=== PATIENT | female | born 1990 | race Caucasian/White ===

== ENCOUNTER 2017-07-13 19:59 | Emergency (ER) | payer BC ==
[~2017-07-13] VITALS: Ht 152.4 cm; Wt 57.9 kg
[~2017-07-13 19:59] MED LIST: BCPILLS PO; CETI10TA84 PO; DIPH1TAB87 PO; GABA-112 PO; LACTPOW PO; LANS15CA6 PO; MONT1TAB3 PO
[2017-07-13 20:02] VITALS: TEMP 37.2; Ht 152.4 cm; Wt 57.9 kg
[2017-07-13] MEDS ORDERED: SODIUM CHLORIDE 0.9% 1000ML 1,000 ML IV STA (20:09)
[2017-07-13] MEDS ORDERED: KETOROLAC TROMETHAMINE 30 MG/ML VIAL IV STA (20:09)
[2017-07-13] MEDS ORDERED: ONDANSETRON INJ 2 MG/ML 2 ML VIAL IV STA (20:09)
[2017-07-13] MEDS ORDERED: OPTIRAY 320 IV PRN (20:15)
[2017-07-13 20:39] LABS: BASO % 0.1 %; BASO ABS # 0.01 K/uL (0-0.2); EOS % 0.7 %; EOS ABS # 0.05 K/uL (0-0.5); HEMOGLOBIN 12.6 g/dL (12.0-16.0); IG# 0.02 K/uL (0.00-0.02); LYMPH % 37.3 %; LYMPH ABS # 2.75 K/uL (1.2-3.4); MEAN CELL VOLUME 88.7 fL (80-100); MEAN CORPUSCULAR HEMOGLOBIN 30.2 pg (25-34); MEAN CORPUSCULAR HGB CONC 34.1 g/dl (32-36); MEAN PLATELET VOLUME 11.2 fL (7.4-10.4); MONO % 4.5 %; MONO ABS # 0.33 K/uL (0.11-0.59); NEUT % 57.1 %; NEUT ABS # 4.22 K/uL (1.4-6.5); PLATELET COUNT 243 K/uL (130-400); RED CELL DISTRIBUTION WIDTH CV 12.9 % (11.5-14.5); RED CELL DISTRIBUTION WIDTH SD 41.3 fL (36.4-46.3); WHITE BLOOD COUNT 7.38 K/uL (4.8-10.8)
[2017-07-13 21:01] LABS: ALBUMIN 3.5 gm/dl (3.4-5.0); ALT/SGPT 21 U/L (12-78); AST/SGOT 13 U/L (15-37); BLOOD UREA NITROGEN 7 mg/dl (7-18); CALCIUM 8.7 mg/dl (8.5-10.1); CARBON DIOXIDE 27 mmol/L (21-32); CREATININE 0.79 mg/dl (0.60-1.20); GLUCOSE 91 mg/dl (70-99); LIPASE 112 U/L (73-393); POTASSIUM 3.7 mmol/L (3.5-5.1); SODIUM 140 mmol/L (136-145)
[2017-07-13 21:04] LABS: ALKALINE PHOSPHATASE 57 U/L (45-117)
--- NOTE | 2017-07-13 21:48 | DIAGNOSTIC IMAGING REPORT ---
ABD/PELVIS IV CONTRAST ONLY CT DOSE: 415.91 mGycm HISTORY: Right flank pain rlq abd pain TECHNIQUE: Multiaxial CT images of the abdomen and pelvis were performed following the use of intravenous contrast. A dose lowering technique was utilized adhering to the principles of ALARA. COMPARISON STUDY: 05/25/2014 FINDINGS: The lung bases are clear. The liver, spleen, gallbladder, pancreas, kidneys, and adrenal glands are within normal limits. No bowel wall thickening or obstruction. The pelvic organs are unremarkable. No suspicious lytic or blastic osseous lesions. The appendix is normal. Several fluid-filled loops of small bowel in the mid abdomen extending to the pelvis which may suggest a mild enteritis. Uterus is anteflexed. No free fluid within the cul-de-sac. IMPRESSION: No significant abnormality identified within the abdomen or pelvis. Possible mild enteritis. Normal appendix. The above report was generated using voice recognition software. It may contain grammatical, syntax or spelling errors. Electronically signed by: Bryan Mares M.D. 07/13/2017 9:46 PM Dictated Date/Time: 07/13/2017 9:45 PM
[2017-07-13 22:30] VITALS: BP 101/54; PULSE 71; O2SAT 98
--- NOTE | 2017-07-14 01:12 | EMERGENCY ROOM VISIT NOTE ---
History Report prepared by Barrera: Claude Carranza Under the Supervision of: Dr. Caleb Lynch D.O. First contact with patient: 20:04 Chief Complaint: ABDOMINAL PAIN Stated Complaint: LOWER R QUADRANT PAIN CHILLS History of Present Illness The patient is a 27 year old female who presents to the Emergency Room with complaints of constant, sharp, RLQ abdominal pain beginning earlier today. She currently rates her discomfort a 5/10 in severity. The patient states she then developed nausea and chills throughout the day. She reports her symptoms will radiate around the right side to her right flank and down into her right leg. The patient notes she has a history of this before when she realized she was gluten intolerant. She states she is not able to eat or drink anything because it worsens her symptoms. The patient reports her last bowel movement was today, and it was normal. She notes her LNMP was two weeks ago. The patient states she has a history of a cholecystectomy. She reports she was evaluated at a walk-in clinic prior to arrival where her UA was negative. The patient denies pain with urination, burning with urination, a history of ovarian cysts, vaginal bleeding , and vaginal discharge. Source of History: patient Onset: earlier today Position: abdomen (RLQ) Symptom Intensity: 5/10 Quality: sharp Timing: constant Modifying Factors (Worsening): eating, drinking Associated Symptoms: + chills, + nausea Note: Associated symptoms: right flank pain, right leg pain Denies: vaginal bleeding or discharge, pain or burning with urination Review of Systems See HPI for pertinent positives & negatives. A total of 10 systems reviewed and were otherwise negative. Past Medical & Surgical Medical Problems: (1) Allergic rhinitis (2) Cholecystectomy planned (3) GERD (gastroesophageal reflux disease) Surgical Problems: (1) History of resection of rib (2) Hx laparoscopic cholecystectomy (3) [place] teeth extracted Family History Cancer Diabetes mellitus Gallbladder disease Kidney disease Kidney stones Social History Smoking Status: Never Smoker Alcohol Use: occasionally Marital Status: single Housing Status: lives alone Occupation Status: employed Current/Historical Medications Scheduled Control Pills ( Control Pills), 1 TAB PO DAILY Cetirizine (Zyrtec), 10 MG PO DAILY Gabapentin (Neurontin), 100 MG PO am Gabapentin (Neurontin), 200 MG PO PM Lactose (Lactose), 1 TAB PO DAILY Lansoprazole (Prevacid), 15 MG PO DAILY Montelukast Sodium (Singulair), 10 MG PO DIRECTED Scheduled PRN Diphenhydramine Hcl (Benadryl Allergy), 1 TAB PO DIRECTED PRN for ALLERGY Allergies Coded Allergies: No Known Allergies (Unverified , 05/25/14) Physical Exam Vital Signs Date Time Temp Pulse Resp B/P (MAP) Pulse Ox O2 Delivery O2 Flow Rate FiO2 07/13/17 22:30 71 18 101/54 98 07/13/17 21:38 79 18 94/61 99 Room Air 07/13/17 20:02 37.2 66 20 123/84 98 Room Air Physical Exam GENERAL: Sitting up in bed, alert, well appearing, well nourished, no distress, non-toxic EYE EXAM: normal conjunctiva. OROPHARYNX: no exudate, no erythema, lips, buccal mucosa, and tongue normal and mucous membranes are moist NECK: supple, no nuchal rigidity, no adenopathy, non-tender LUNGS: Clear to auscultation. Normal chest wall mechanics HEART: no murmurs, S1 normal and S2 normal ABDOMEN: abdomen soft, faint tenderness in the right mid-abdomen, normo-active bowel sounds, no masses, no rebound or guarding. BACK: Back is symmetrical on inspection and there is no deformity, no midline tenderness, no CVA tenderness. SKIN: no rashes and no bruising UPPER EXTREMITIES: upper extremities are grossly normal. LOWER EXTREMITIES: No pitting edema. NEURO EXAM: Normal sensorium, cranial nerves II-XII grossly intact, normal speech, no gross weakness of arms, no gross weakness of legs. Medical Decision & Procedures ER Provider Diagnostic Interpretation: CT:Per my review, radiologist interpretation. ABD/PELVIS IV CONTRAST ONLY CT DOSE: 415.91 mGycm HISTORY: Right flank pain rlq abd pain TECHNIQUE: Multiaxial CT images of the abdomen and pelvis were performed following the use of intravenous contrast. A dose lowering technique was utilized adhering to the principles of ALARA. COMPARISON STUDY: 05/25/2014 FINDINGS: The lung bases are clear. The liver, spleen, gallbladder, pancreas, kidneys, and adrenal glands are within normal limits. No bowel wall thickening or obstruction. The pelvic organs are unremarkable. No suspicious lytic or blastic osseous lesions. The appendix is normal. Several fluid-filled loops of small bowel in the mid abdomen extending to the pelvis which may suggest a mild enteritis. Uterus is anteflexed. No free fluid within the cul-de-sac. IMPRESSION: No significant abnormality identified within the abdomen or pelvis. Possible mild enteritis. Normal appendix. The above report was generated using voice recognition software. It may contain grammatical, syntax or spelling errors. Electronically signed by: Bryan Mares M.D. 07/13/2017 9:46 PM Dictated Date/Time: 07/13/2017 9:45 PM Laboratory Results 07/13/17 20:25 Red Blood Count 4.17, Mean Corpuscular Volume 88.7, Mean Corpuscular Hemoglobin 30.2, Mean Corpuscular Hemoglobin Concent 34.1, Mean Platelet Volume 11.2, Neutrophils (%) (Auto) 57.1, Lymphocytes (%) (Auto) 37.3, Monocytes (%) (Auto) 4.5, Eosinophils (%) (Auto) 0.7, Basophils (%) (Auto) 0.1, Neutrophils # (Auto) 4.22, Lymphocytes # (Auto) 2.75, Monocytes # (Auto) 0.33, Eosinophils # (Auto) 0.05, Basophils # (Auto) 0.01 07/13/17 20:25 Test 07/13/17 20:25 White Blood Count 7.38 K/uL (4.8-10.8) Red Blood Count 4.17 M/uL (4.2-5.4) Hemoglobin 12.6 g/dL (12.0-16.0) Hematocrit 37.0 % (37-47) Mean Corpuscular Volume 88.7 fL (80-100) Mean Corpuscular Hemoglobin 30.2 pg (25-34) Mean Corpuscular Hemoglobin Concent 34.1 g/dl (32-36) Platelet Count 243 K/uL (130-400) Mean Platelet Volume 11.2 fL (7.4-10.4) Neutrophils (%) (Auto) 57.1 % Lymphocytes (%) (Auto) 37.3 % Monocytes (%) (Auto) 4.5 % Eosinophils (%) (Auto) 0.7 % Basophils (%) (Auto) 0.1 % Neutrophils # (Auto) 4.22 K/uL (1.4-6.5) Lymphocytes # (Auto) 2.75 K/uL (1.2-3.4) Monocytes # (Auto) 0.33 K/uL (0.11-0.59) Eosinophils # (Auto) 0.05 K/uL (0-0.5) Basophils # (Auto) 0.01 K/uL (0-0.2) RDW Standard Deviation 41.3 fL (36.4-46.3) RDW Coefficient of Variation 12.9 % (11.5-14.5) Immature Granulocyte % (Auto) 0.3 % Immature Granulocyte # (Auto) 0.02 K/uL (0.00-0.02) Anion Gap 6.0 mmol/L (3-11) Est Creatinine Clear Calc Drug Dose 85.2 ml/min Estimated GFR () 118.9 Estimated GFR (Non- 102.6 BUN/Creatinine Ratio 8.2 (10-20) Calcium Level 8.7 mg/dl (8.5-10.1) Total Bilirubin 0.3 mg/dl (0.2-1) Direct Bilirubin < 0.1 mg/dl (0-0.2) Aspartate Amino Transf (AST/SGOT) 13 U/L (15-37) Alanine Aminotransferase (ALT/SGPT) 21 U/L (12-78) Alkaline Phosphatase 57 U/L (45-117) Total Protein 7.0 gm/dl (6.4-8.2) Albumin 3.5 gm/dl (3.4-5.0) Lipase 112 U/L (73-393) Human Chorionic Gonadotropin, Qual NEG (NEG) Laboratory results per my review. Medications Administered Medications (Trade) Dose Ordered Sig/Lukasz Route Start Time Stop Time Status Last Admin Dose Admin Sodium Chloride 1,000 ml @ 999 mls/hr Q1H1M STAT IV 07/13/17 20:09 07/13/17 21:09 DC 07/13/17 20:27 999 MLS/HR Ondansetron HCl (Zofran Inj) 4 mg NOW STAT IV 07/13/17 20:09 07/13/17 20:11 DC 07/13/17 20:27 4 MG Ketorolac Tromethamine (Toradol Inj) 30 mg NOW STAT IV 07/13/17 20:09 07/13/17 20:11 DC 07/13/17 20:27 30 MG ED Course ED COURSE: Vital signs were reviewed and showed normal vitals The patients medical record was reviewed The above diagnostic studies were performed and reviewed. ED treatments and interventions as stated above. 2005: The patient was evaluated in room B03B. A complete history and physical examination was performed. 2008: Ordered Toradol 30mg IV, Zofran 4mg IV, Sodium Chloride 1000 ml @ 999 mls/ hr IV 2205: I reevaluated the patient. She is feeling much better and does not want more pain medication. 2221: Upon reevaluation, the patient is resting and feeling better.I discussed my findings with the patient and she understands and agrees with the treatment plan. Based on the patients age, coexisting illnesses, exam and lab findings the decision to treat as an outpatient was made. The patient remained stable while under my care. The patient appeared well at the time of discharge. Medical Decision Differential diagnoses includes but is not limited to gastritis, peptic ulcer disease, GERD, gallbladder disease, pancreatitis, small bowel obstruction, acute coronary syndrome, pericarditis, ischemic bowel, irritable bowel disease, irritable bowel syndrome, appendicitis, diverticulitis, malignancy, hernia, urinary tract infection, torsion, /ectopic , perforation, trauma, infectious. Patient is a 27-year-old female who presents the ER for sharp pains in the right lower quadrant referred in by PCP. Last menstrual period was 2 weeks ago. No vaginal bleeding vaginal discharge. No fevers. CBC along with BMP, LFTs, bilirubin and lipase was negative. HCG was negative. Patient just had a urine performed across the street was reviewed and was negative. No signs of UTI. CT shows normal appendix. No signs of ovarian torsion. Based on her symptoms and timeframe I do favor this is likely a small ovarian cyst. Patient was updated at bedside. Discharged follow-up with PCP as an outpatient. Discussed with Pt concerning signs and symptoms to watch out for. Pt was instructed to follow up with their PCP and discussed with the patient their option to return to the ED at anytime for persistent or worsening symptoms. The appropriate anticipatory guidance and out-patient management, including indications for return to the emergency department, were explained at length to the patient and understood. Medication Reconcilliation Current Medication List: was personally reviewed by me Blood Pressure Screening Patient's blood pressure: Normal blood pressure Blood pressure disposition: Did not require urgent referral Impression Primary Impression: Abdominal pain Scribe Attestation The scribe's documentation has been prepared under my direction and personally reviewed by me in its entirety. I confirm that the note above accurately reflects all work, treatment, procedures, and medical decision making performed by me. Departure Information Dispostion Home / Self-Care Referrals Falguni Mai DO (PCP) Forms HOME CARE DOCUMENTATION FORM, IMPORTANT VISIT INFORMATION Patient Instructions Abdominal Pain - [facility] Additional Instructions Please follow up with your primary care doctor with in the next 24 hours. Any worsening of your symptoms, please return to the ED immediately. This includes any fevers greater than 100.4, worsening pain, chest pain, shortness breath, persistent nausea, vomiting, unable to eat or drink, or any other concerning signs or symptoms from your standpoint. Please take Tylenol or Motrin as needed for pain. Problem Qualifiers Primary Impression: Abdominal pain Abdominal location: unspecified location Qualified Codes: R10.9 - Unspecified abdominal pain
== END 2017-07-13 22:32 | disposition home or self-care (01) ==
LOC: C.EDB 20:01
DX: R10.31 Right lower quadrant pain (principal); K21.9 Gastro-esophageal reflux disease without esophagitis; Z79.3 Long term (current) use of hormonal contraceptives; Z79.899 Other long term (current) drug therapy

== ENCOUNTER → 2017-11-02 | Outpatient (CLI) | payer BC | END | disposition home or self-care (01) | LOC: C.RDSM 10:19 | PROVIDERS: ATTEND Family Medicine | DX: M79.671 Pain in right foot (principal); Z91.018 Allergy to other foods; Z91.011 Allergy to milk products ==

== ENCOUNTER 2022-06-17 07:51 | Inpatient (IN) ==
[2022-06-17] MEDS ORDERED: OXYTOCIN 30 UNITS/500 ML BAG IV PRN ×2 (07:53→08:18)
[2022-06-17] MEDS ORDERED: LIDOCAINE 1% LOCAL 20 ML VIAL INFIL PRN (07:53)
--- NOTE | 2022-06-17 08:31 | History & Physical Report ---
Date of Service June 17, 2022 Assessment & Plan (1) with 41 completed weeks gestation: Plan: induction of labor Admission and Anticipated Discharge Date Admission Date: June 17, 2022 History of Present Illness Primary Care Provider: Kandis James MD [facility] Calculator C Estimated Delivery Date Method Current WG Current Estimate 06/09/22 Ultrasound #1 41w 0d Other Estimates 06/09/22 Conception 41w 0d LMP: 07/10/21 : 2 Full term: 0 Premature: 0 Total Number of Induced Abortions: 0 Total Number of Spontaneous Abortions: 1 Ectopics: 0 Multiple births: 0 Number of Living Children: 0 and Delivery Plans + Covid 03/14/22, sx's began 03/11/22 Covid Vaccine x 3 (Moderna) Spouse with ventricular depression(his dx was age 8) -offered echo (02/11/22 @ [facility] [place]) WNL Hx Complex regional pain syndrome - Requested Anesthesia consul (05/29/22 @ 130pm) Allergies Allergy/AdvReac Type Severity Reaction Status Date / Time gluten AdvReac Severe Vomiting Verified 06/16/22 20:52 lactose AdvReac Severe Vomiting Verified 06/16/22 20:51 Home Medications Medication Instructions Recorded Confirmed Type cetirizine 10 mg capsule mg PO .Take 1 tab PO day 09/21/20 06/16/22 History diphenhydramine HCl 25 mg capsule 25 mg PO PRN allergic reaction 09/21/20 06/16/22 History fluticasone propionate 50 2 spray intranasal DAILY #15.8 mL 09/21/20 06/16/22 Rx mcg/actuation nasal spray,suspension (Flonase Allergy Relief) prenat.vits,janessa,[id number] 1 tab PO DAILY 08/28/21 06/16/22 History albuterol sulfate [Proventil HFA] inhalation 10/22/21 06/16/22 History breast pump #1 ea 03/24/22 06/16/22 Rx omeprazole PO 05/29/22 06/16/22 History Patient History Medical History (Updated 06/16/22 @ 20:07 by Nara Mcclellan MD, FACOG) Acne Complex regional pain syndrome - Bilateral legs - Left LE - mostly to left ankle (can get pain up into left hip at times) - Right LE mostly to right foot - Off meds since Feb 2019 (usually aggravated in cold weather) (on Gabapentin and Robaxin in the past) - Followed with ortho in the past - No recent issues/stable Esophageal reflux - Prior to - occ aggravated with - takes Prevacid daily - Will start Omeprazole after delivery Exercise-induced asthma Rare inhaler use Gastroparesis Lactase deficiency Mild scoliosis Neurogenic thoracic outlet syndrome S/p rib removal- symptoms improved Occ muscle spams if prolonged sitting Seasonal allergies Surgical History History of resection of rib S/P cholecystectomy S/P wisdom tooth extraction Family History Grandmother (Paternal) Uterine cancer Father Esophageal cancer Thyroid cancer Mother Endometriosis Arrhythmia Denies family history of Ovarian cancer Breast cancer Colorectal cancer Social History (Updated 10/22/21 @ 17:15 by Apoorva Cruz) Smoking Status: Never smoker Second Hand Exposure: No; Hx Alcohol Use: No (Social drinker prior to ) Hx Substance Use: No marital status: marital status details: Skip Cano [phone]) [phone] Current Living Situation: Spouse Current Living Situation Comment: lives with spouse, dog current occupational status: employed 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
[2022-06-17 08:53] LABS: Hematocrit (blood only) 35.4 % (37.0-47.0); Hemoglobin 12.1 g/dl (12.0-16.0); Mean Corpuscular Hemoglobin 30.6 pg (25.0-34.0); Mean Corpuscular Hgb Conc 34.2 g/dL (32.0-36.0); Mean Corpuscular Volume 89.6 fL (80.0-100.0); Mean Platelet Volume 12.5 fL (9.4-12.4); Platelet Count 221 K/uL (130-400); RDW Coefficient of Variation 13.3 % (11.5-14.5); RDW Standard Deviation 43.5 fL (36.4-46.3); Red Blood Count 3.95 M/uL (4.20-5.40); White Blood Count 10.62 K/ul (4.8-10.8)
[2022-06-17] MEDS: LACTATED RINGER'S 1,000 ML IV PRN ×2 (09:33→17:36)
[2022-06-18] MEDS: LACTATED RINGER'S 1,000 ML IV PRN ×5 (01:35→20:52)
[2022-06-18] MEDS: CALCIUM CARBONATE 500 MG CHEWABLE TAB PO PRN ×2 (04:57→18:25)
--- NOTE | 2022-06-18 07:13 | Labor Progress Brief Note ---
Date of Service June 18, 2022 Update progress membranes have been ruptured artificially initially the head was somewhat high to do this and was floating away so artificial rupture of membranes was not performed the heart rate is category 1 patient still is not requesting epidural and she is comfortable continue induction of labor she is not truly an active labor yet despite significant amounts of Pitocin hopefully with rupture of membranes this will help the baby's head was secured at rupture of membranes at 4:30 in the morning and did not float away and tracing has been reasonable since. Assessment & Plan Admission and Anticipated Discharge Date Admission Date: June 17, 2022 Results & Data Vital Signs (Past 12 Hours) Vital Signs Temp Pulse Resp BP 06/18/22 07:06 54 L 109/74 06/18/22 04:40 98.6 F 06/18/22 04:10 18 06/18/22 04:10 98.8 F 18 06/18/22 04:11 64 99/59 L 06/17/22 23:00 18 06/17/22 23:00 98.6 F 18 06/17/22 22:59 75 109/60 06/17/22 20:00 18 06/17/22 20:00 98.2 F 18 Coding Level of Care Code None Diagnoses
[2022-06-18] MEDS ORDERED: ePHEDrine sulfate 50 MG/ML AMP ONE (08:14)
[2022-06-18] MEDS ORDERED: SODIUM CHLORIDE 0.9% PF INJ 10 ML VIAL ONE (08:15)
[2022-06-18] MEDS ORDERED: fentaNYL citrate PF 100 MCG/2 ML VIAL ONE (08:15)
[2022-06-18] MEDS ORDERED: LIDOCAINE 2%/EPINEPHRINE 1:200,000 20 ML PF ONE (08:15)
[2022-06-18] MEDS ORDERED: BUPIVACAINE 0.25% PF 30 ML VIAL ONE (08:15)
[2022-06-18] MEDS ORDERED: fentaNYL 2MCG/ML ROPIVACAINE 1.25MG/ML 100 ML BAG EPI ONE (08:16)
--- NOTE | 2022-06-18 08:41 | Anesthesiology Consultation ---
Date of Service June 18, 2022 Assessment & Plan (1) Encounter for pre-operative examination: Chart Review Chart Review: Acceptable Risk for Labor Epidural History Height/Weight Height: 5 ft Weight: 78.018 kg Allergies Allergy/AdvReac Type Severity Reaction Status Date / Time gluten AdvReac Severe Vomiting Verified 06/16/22 20:52 lactose AdvReac Severe Vomiting Verified 06/16/22 20:51 Medications Home Medications Medication Instructions Recorded Confirmed Last Taken prenat.vits,janessa,[id number] 1 tab PO DAILY 08/28/21 06/17/22 06/16/22 20:00 albuterol sulfate [Proventil HFA] 2 puff inhalation PRN Shortness Of 10/22/21 06/16/22 Unknown Breath breast pump #1 ea 03/24/22 06/16/22 Unknown omeprazole 1 tab PO DAILY 05/29/22 06/16/22 Unknown cetirizine 10 mg capsule 10 mg PO DAILY 06/17/22 06/17/22 06/17/22 06:00 fluticasone propionate 50 2 spray intranasal DAILY 06/17/22 06/17/22 06/16/22 20:00 mcg/actuation nasal spray,suspension Active Medications Generic Name Dose Route Start Last Admin Trade Name Freq PRN Reason Stop Dose Admin Calcium Carbonate 1,500 mg 06/18/22 04:14 06/18/22 04:57 Calcium Carbonate 500 Mg Chewable Tab PO 07/18/22 04:13 1,500 mg Q6 PRN Administration Indigestion Lactated Ringer's 1,000 mls @ 125 mls/hr 06/17/22 07:53 06/18/22 08:32 Lr IV 06/19/22 07:52 999 mls/hr .Q8H PRN Administration L&D Protocol Protocol Oxytocin 30 units in 500 mls @ 10 mls/hr 06/17/22 08:18 06/18/22 07:35 Pitocin IV 06/19/22 08:17 0.6 units/hr .Q24H PRN 10 mls/hr Labor Induction/Augmentation Titration Protocol 0.6 UNITS/HR Past Medical History Medical History Acne Complex regional pain syndrome - Bilateral legs - Left LE - mostly to left ankle (can get pain up into left hip at times) - Right LE mostly to right foot - Off meds since Feb 2019 (usually aggravated in cold weather) (on Gabapentin and Robaxin in the past) - Followed with ortho in the past - No recent issues/stable Esophageal reflux - Prior to - occ aggravated with - takes Prevacid daily - Will start Omeprazole after delivery Exercise-induced asthma Rare inhaler use Gastroparesis Lactase deficiency Mild scoliosis Neurogenic thoracic outlet syndrome S/p rib removal- symptoms improved Occ muscle spams if prolonged sitting Seasonal allergies Past Family History Family History Grandmother (Paternal) Uterine cancer Father Esophageal cancer Thyroid cancer Mother Endometriosis Arrhythmia Denies family history of Ovarian cancer Breast cancer Colorectal cancer Past Surgical History Surgical History History of resection of rib S/P cholecystectomy S/P wisdom tooth extraction Social History Smoking Status: Never smoker Hx Alcohol Use: No (Social drinker prior to ) Hx Substance Use: No substance use type: does not use Physical Exam Vital Signs Last Vital Signs Temp 36.8 C 06/18/22 07:06 Pulse 54 L 06/18/22 07:06 Resp 20 06/18/22 07:06 BP 109/74 06/18/22 07:06 Testing Laboratory Results 06/17/22 08:20
[2022-06-18] MEDS ORDERED: ePHEDrine sulfate 50 MG/ML AMP IV PRN (09:09)
[2022-06-18] MEDS ORDERED: NALOXONE HCL 0.4 MG/1 ML VIAL/CARP IV PRN (09:09)
[2022-06-18] MEDS ORDERED: fentaNYL 2MCG/ML ROPIVACAINE 1.25MG/ML 100 ML BAG EPI PRN (09:09)
[2022-06-18] MEDS ORDERED: ONDANSETRON INJ 2 MG/ML 2 ML VIAL IV PRN (09:09)
[2022-06-18] MEDS ORDERED: NALOXONE HCL 1 MG in SODIUM CHLORIDE 0.9% 1000ML 1,000 ML IV PRN (09:09)
[2022-06-18] MEDS ORDERED: Nursing to Pharmacy Communication SCH (17:30)
[2022-06-19] MEDS ORDERED: HYDROCORTISONE ACETATE 25 MG SUPP PR PRN (00:11)
[2022-06-19] MEDS ORDERED: oxyCODONE/ACETAMINOPHEN 5mg/325mg TAB PO PRN (00:11)
[2022-06-19] MEDS ORDERED: DIPHTHERIA/TETANUS/PERTUSSIS 0.5mL SYR/VIAL (Age 7+yrs) IM ONE (00:11)
[2022-06-19] MEDS ORDERED: ACETAMINOPHEN 325 MG TAB PO PRN (00:11)
[2022-06-19] MEDS ORDERED: bisacodyL 10 MG SUPP PR PRN (00:11)
[2022-06-19] MEDS ORDERED: BENZOCAINE 20% AER SPR 82.5 GM CAN EXT PRN (00:11)
[2022-06-19] MEDS ORDERED: OXYTOCIN 30 UNITS/500 ML BAG IV PRN (00:11)
--- NOTE | 2022-06-19 00:33 | Delivery Summary ---
Vaginal Delivery Summary Date of Service June 19, 2022 Vaginal Delivery Summary and 1st Degree LAC Patient is a 32-year-old 1 P0 female who had presented for induction of labor because of postterm . She received a cervical balloon followed by Pitocin augmentation of her labor. Membranes were ruptured for clear fluid. She progressed to full dilation with effective epidural analgesia. She pushed effectively over intact perineum for delivery of a viable female infant. There was a tight nuchal cord present at delivery and this was cut and clamped prior to delivering the rest of the infant. The had poor tone and respiratory effort upon delivery and was taken to the baby bed for further evaluation. After stimulation, she was crying and moving all 4 limbs. Placenta was then expressed intact with a three-vessel cord. bleeding was controlled with dilute Pitocin and fundal massage. First-degree perineal laceration was repaired with 3-0 chromic in usual fashion. Blood loss was 200 cc. Mother and were doing well after delivery. [facility] Vaginal Delivery Charge Delivery Type Details: and 1st Degree LAC
--- NOTE | 2022-06-19 01:32 | Anesthesia Procedure Note ---
Date of Service June 19, 2022 Anesthesia Post Epidural Note Vital Signs Vital Signs: Temp Pulse Resp BP Pulse Ox 37.3 C 70 18 104/61 76 L 06/18/22 20:35 06/19/22 01:25 06/19/22 01:10 06/19/22 01:25 06/19/22 00:01 Pain Intensity Bilateral Lower Abdomen: Pain Intensity: 0 Groin: Pain Intensity: 4 Notes Mental Status: alert / awake / arousable Nausea / Vomiting: adequately controlled Pain: adequately controlled Airway Patency, RR, SpO2: stable & adequate BP & HR: stable & adequate Hydration State: stable & adequate Neuraxial Anesthesia: was administered and sensory block is resolving Anesthetic Complications: no major complications apparent and Pt Satisfied with anesthetic care Epidural: Removed without complications and With tip intact
[2022-06-19] MEDS: IBUPROFEN 600 MG TAB PO PRN ×4 (02:58→20:02)
--- NOTE | 2022-06-19 06:53 | Obstetrical Progress Note ---
Date of Service June 19, 2022 Assessment & Plan (1) Encounter for care after hospital delivery: Plan - Overall, feeling well and eating well today - Infant feeding going well without concern - Urinating and passing gas appropriately - Ambulating well in room - Pain controlled w/ Ibuprofen - Hgb 12.1 on 06/17 - Vitals stable and wnl - Routine PP care progressing well - Anticipate discharge @ 24-48 hours PP - Recommending f/u outpatient in 6 weeks Admission and Anticipated Discharge Date Admission Date: June 17, 2022 Supervising Physician Co-Signing Physician Notes Resident Physician Supervision Note: I interviewed and examined the patient. Discussed with Dr. Domínguez and agree with findings and plan as documented in the note. Any exceptions or clarifications are listed here: [None] Documented By: Lindsay Corey MD, FACOG Subjective Patient is a 32F who is PPD #1 following delivery at 41 1. She reports feeling well overall this morning. - Ambulation - well throughout room - Voiding/Yañez - independent voids, no dysuria or pressure - Gas/Stool - passing gas, no bowel movement - Diet - regular, no nausea or emesis - Lochia - diminishing, moderate amount - Infant Feeding Type - breast feeding - Pain Level - 2/10, controlled with Ibuprofen Review of Systems - Denies fever, chills, sweats - Denies shortness of breath, difficulty breathing, chest pain, palpitations, chest pressure. - Denies breast pain. - Denies dysuria. - Denies headache or changes in vision. Physical Exam Physical Exam: General: Alert, oriented. No acute distress. Cardiac: RRR, normal S1/S2, no murmurs/rubs/gallops. Respiratory: Non-labored, CTAB, no wheezes/rales/rhonchi. Symmetric chest rise. Abdomen: Soft, nontender, nondistended. Bowel sounds present. Uterus: Uterine fundus firm, palpable 2 cm below umbilicus. Lower Extremities: No lower extremity edema or swelling. No deep calf pain. Harvey's negative bilaterally. Results & Data Vital Signs (Past 12 Hours) Vital Signs Temp Pulse Pulse Resp BP BP Pulse Ox 06/19/22 02:45 36.9 C 77 18 100/59 L 97 06/19/22 02:10 37.0 C 20 06/19/22 01:40 18 06/19/22 01:10 18 06/19/22 00:10 20 06/18/22 19:08 37.1 C 18 06/19/22 02:11 75 98/68 L 06/19/22 01:56 62 98/63 L 06/19/22 01:40 55 L 101/63 06/19/22 01:25 70 104/61 06/19/22 01:11 56 L 107/69 06/19/22 00:56 59 L 107/55 L 06/19/22 00:41 71 115/62 06/19/22 00:26 77 113/63 06/19/22 00:10 75 100/61 06/19/22 00:01 72 76 L 06/18/22 23:59 66 79 L 06/18/22 23:55 66 98 06/18/22 23:51 62 105/59 L 06/18/22 23:50 69 87 L 06/18/22 23:45 61 96 06/18/22 23:42 67 86 L 06/18/22 23:40 83 95 06/18/22 23:36 66 06/18/22 23:35 93 H 89 L 06/18/22 23:36 95 H 115/61 84 L 06/18/22 23:30 62 96 06/18/22 23:25 59 L 96 06/18/22 23:24 60 82 L 06/18/22 23:22 57 L 112/67 06/18/22 23:20 60 89 L 06/18/22 23:17 65 84 L 06/18/22 23:15 62 96 06/18/22 23:10 75 97 06/18/22 23:06 60 112/64 06/18/22 23:05 100 H 96 06/18/22 23:00 59 L 99 06/18/22 22:55 59 L 97 06/18/22 22:52 58 L 108/63 06/18/22 22:50 98 06/18/22 22:50 67 06/18/22 22:50 61 86 L 06/18/22 22:45 61 95 06/18/22 22:40 107 H 90 06/18/22 22:39 65 85 L 06/18/22 22:38 60 105/60 06/18/22 22:35 61 97 06/18/22 22:32 76 87 L 06/18/22 22:30 57 L 95 06/18/22 22:25 58 L 95 06/18/22 22:21 54 L 109/64 06/18/22 22:20 59 L 97 06/18/22 22:18 67 84 L 06/18/22 22:15 63 96 06/18/22 22:11 76 82 L 06/18/22 22:10 73 91 06/18/22 22:07 57 L 108/65 06/18/22 22:05 63 97 06/18/22 22:00 60 95 06/18/22 21:55 61 96 06/18/22 21:51 58 L 108/68 06/18/22 21:50 60 95 06/18/22 21:45 64 97 06/18/22 21:40 59 L 96 06/18/22 21:35 63 97 06/18/22 21:36 70 105/65 06/18/22 21:30 68 97 06/18/22 21:25 58 L 95 06/18/22 21:21 62 99/56 L 06/18/22 21:20 59 L 95 06/18/22 21:15 84 96 06/18/22 21:10 78 96 06/18/22 21:07 64 107/64 06/18/22 21:05 68 94 06/18/22 21:00 69 18 96 06/18/22 20:55 71 93 06/18/22 20:51 62 104/63 06/18/22 20:50 67 95 06/18/22 19:30 18 06/18/22 19:30 18 06/18/22 20:45 68 94 06/18/22 20:40 67 94 06/18/22 20:36 65 105/64 06/18/22 20:35 37.3 C 65 95 06/18/22 20:30 71 18 95 06/18/22 20:25 63 94 06/18/22 20:21 67 105/64 06/18/22 20:20 71 95 06/18/22 20:15 62 98 06/18/22 20:10 66 100 06/18/22 20:07 72 83 L 06/18/22 20:06 73 105/63 06/18/22 20:05 70 100 06/18/22 20:00 69 20 100 06/18/22 19:55 64 100 06/18/22 19:51 58 L 96/55 L 06/18/22 19:50 80 100 06/18/22 19:45 62 99 06/18/22 19:39 75 95 06/18/22 19:37 60 105/60 06/18/22 19:34 58 L 94 06/18/22 19:29 72 94 06/18/22 19:24 61 94 06/18/22 19:22 60 108/66 06/18/22 19:19 64 97 06/18/22 19:14 66 93 06/18/22 19:09 64 93 06/18/22 19:06 59 L 101/59 L 06/18/22 19:04 63 93 06/18/22 18:59 64 96 06/18/22 18:54 70 96 06/18/22 18:51 59 L 105/60 O2 Del Method 06/19/22 02:45 Room Air 06/19/22 02:10 06/19/22 01:40 06/19/22 01:10 06/19/22 00:10 06/18/22 19:08 06/19/22 02:11 06/19/22 01:56 06/19/22 01:40 06/19/22 01:25 06/19/22 01:11 06/19/22 00:56 06/19/22 00:41 06/19/22 00:26 06/19/22 00:10 06/19/22 00:01 06/18/22 23:59 06/18/22 23:55 06/18/22 23:51 06/18/22 23:50 06/18/22 23:45 06/18/22 23:42 06/18/22 23:40 06/18/22 23:36 06/18/22 23:35 06/18/22 23:36 06/18/22 23:30 06/18/22 23:25 06/18/22 23:24 06/18/22 23:22 06/18/22 23:20 06/18/22 23:17 06/18/22 23:15 06/18/22 23:10 06/18/22 23:06 06/18/22 23:05 06/18/22 23:00 06/18/22 22:55 06/18/22 22:52 06/18/22 22:50 06/18/22 22:50 06/18/22 22:50 06/18/22 22:45 06/18/22 22:40 06/18/22 22:39 06/18/22 22:38 06/18/22 22:35 06/18/22 22:32 06/18/22 22:30 06/18/22 22:25 06/18/22 22:21 06/18/22 22:20 06/18/22 22:18 06/18/22 22:15 06/18/22 22:11 06/18/22 22:10 06/18/22 22:07 06/18/22 22:05 06/18/22 22:00 06/18/22 21:55 06/18/22 21:51 06/18/22 21:50 06/18/22 21:45 06/18/22 21:40 06/18/22 21:35 06/18/22 21:36 06/18/22 21:30 06/18/22 21:25 06/18/22 21:21 06/18/22 21:20 06/18/22 21:15 06/18/22 21:10 06/18/22 21:07 06/18/22 21:05 06/18/22 21:00 06/18/22 20:55 06/18/22 20:51 06/18/22 20:50 06/18/22 19:30 06/18/22 19:30 06/18/22 20:45 06/18/22 20:40 06/18/22 20:36 06/18/22 20:35 06/18/22 20:30 06/18/22 20:25 06/18/22 20:21 06/18/22 20:20 06/18/22 20:15 06/18/22 20:10 06/18/22 20:07 06/18/22 20:06 06/18/22 20:05 06/18/22 20:00 06/18/22 19:55 06/18/22 19:51 06/18/22 19:50 06/18/22 19:45 06/18/22 19:39 06/18/22 19:37 06/18/22 19:34 06/18/22 19:29 06/18/22 19:24 06/18/22 19:22 06/18/22 19:19 06/18/22 19:14 06/18/22 19:09 06/18/22 19:06 06/18/22 19:04 06/18/22 18:59 06/18/22 18:54 06/18/22 18:51 Resident Activity Tracking Resident Involvement: Resident Care Provided Care Provided: OB Delivery
[2022-06-19] MEDS: DOCUSATE SODIUM 100 MG CAP PO SCH ×2 (07:52→20:02)
[2022-06-19] MEDS: PRENATAL VITAMIN 1 TAB PO SCH (07:52)
[2022-06-20] MEDS: IBUPROFEN 600 MG TAB PO PRN ×2 (03:38→08:28)
[2022-06-20 07:23] LABS: Hematocrit (blood only) 30.9 % (37.0-47.0); Hemoglobin 10.4 g/dl (12.0-16.0); Mean Corpuscular Hemoglobin 30.5 pg (25.0-34.0); Mean Corpuscular Hgb Conc 33.7 g/dL (32.0-36.0); Mean Corpuscular Volume 90.6 fL (80.0-100.0); Mean Platelet Volume 12.2 fL (9.4-12.4); Platelet Count 148 K/uL (130-400); RDW Coefficient of Variation 13.4 % (11.5-14.5); RDW Standard Deviation 44.1 fL (36.4-46.3); Red Blood Count 3.41 M/uL (4.20-5.40); White Blood Count 13.41 K/ul (4.8-10.8)
--- NOTE | 2022-06-20 07:23 | Obstetrical Progress Note ---
Date of Service June 20, 2022 Assessment & Plan (1) Encounter for care after hospital delivery: Plan - Overall, feeling well and eating well today - Infant feeding going well without concern - Urinating and passing gas appropriately - Ambulating well in room - Pain controlled w/ Ibuprofen - Hgb 12.1 on 06/17, pending 06/20 - Vitals stable and wnl - Routine PP care progressing well - Anticipate discharge @ 24-48 hours PP - Recommending f/u outpatient in 6 weeks Admission and Anticipated Discharge Date Admission Date: June 17, 2022 Supervising Physician Co-Signing Physician Notes Patient seen with resident and agree with the above findings and plan. Routine care. stable for discharge Subjective Patient is a 32F who is PPD #2 following delivery at 41 03/22. She reports feeling well overall this morning. - Ambulation - well throughout room - Voiding/Yañez - independent voids, no dysuria or pressure - Gas/Stool - passing gas, no bowel movement - Diet - regular, no nausea or emesis - Lochia - diminishing, light amount - Feeding Type - breast feeding - Pain Level - 2/10, controlled with Ibuprofen Review of Systems - Denies fever, chills, sweats - Denies shortness of breath, difficulty breathing, chest pain, palpitations, chest pressure. - Denies breast pain. - Denies dysuria. - Denies headache or changes in vision. Physical Exam Physical Exam: General: Alert, oriented. No acute distress. Cardiac: RRR, normal S1/S2, no murmurs/rubs/gallops. Respiratory: Non-labored, CTAB, no wheezes/rales/rhonchi. Symmetric chest rise. Abdomen: Soft, nontender, nondistended. Bowel sounds present. Uterus: Uterine fundus firm, palpable 2 cm below umbilicus. Lower Extremities: No lower extremity edema or swelling. No deep calf pain. Harvey's negative bilaterally. Results & Data Vital Signs (Past 12 Hours) Vital Signs Temp Pulse Resp BP O2 Del Method 06/20/22 03:55 36.6 C 67 16 105/73 Room Air 06/19/22 19:45 37.0 C 82 16 99/65 L Room Air 06/19/22 19:45 Room Air
[2022-06-20] MEDS: DOCUSATE SODIUM 100 MG CAP PO SCH (08:28)
[2022-06-20] MEDS: PRENATAL VITAMIN 1 TAB PO SCH (08:28)
[2022-06-20] MEDS ORDERED: bisacodyL 5 MG TABEC PO SCH (20:00)
== END 2022-06-20 12:15 | disposition home or self-care (01) | DRG 806 ==
LOC: 4S1 07:51 → 4E2 06-19 03:04